=== PATIENT | female | born 1970 | race Asian ===

== ENCOUNTER 2019-02-21 13:42 | Emergency (ER) | payer OTHER ==
[2019-02-21 14:05] VITALS: BP 125/71
[2019-02-21] MEDS ORDERED: Fluorescein Sodium TOPICAL* 1 MG TEST STRIP OPHTHALMIC ONE (15:13)
[2019-02-21] MEDS ORDERED: Tetracaine 0.5% OPTH.SOL 4 ML* 1 DROP BTL BOTH EYES ONE (15:13)
--- NOTE | 2019-02-21 15:49 | UC ---
Eye Complaint HPI - HPI Summary HPI Summary: 48-year-old woman comes in with a chief complaint of bilateral eye redness irritation and drainage. The left is worse than the right. She has had some upper respiratory tract infection symptoms. Is also worried about HSV in her eye because she does have a perineal outbreak at this time. She reports her vision is blurred today. No fevers no chills. She has contacts but she does not have abdomen right now. She has been flushing her eyes intermittently with urine. But she has not used any urine for multiple days. - History of Current Complaint Chief Complaint: UCEye Stated Complaint: EYE ISSUE Time Seen by Provider: 02/21/19 14:12 Hx Last Menstrual Period: unknown, verry irregular Pain Intensity: 0 - Allergies/Home Medications Allergies/Adverse Reactions: Allergies Allergy/AdvReac Type Severity Reaction Status Date / Time No Known Allergies Allergy Verified 02/21/19 14:02 PMH/Surg Hx/FS Hx/Imm Hx Previously Healthy: Yes - Surgical History Surgical History: Yes Surgery Procedure, Year, and Place: lumpectomy breast - Family History Known Family History: Positive: Non-Contributory - Social History Alcohol Use: Rare Substance Use Type: None Smoking Status (MU): Never Smoked Tobacco Review of Systems All Other Systems Reviewed And Are Negative: Yes Constitutional: Positive: Negative Skin: Positive: Other - see hpi Eyes: Positive: Blurred Vision, Drainage, Eye Redness ENT: Positive: Nasal Discharge, Sinus Congestion Respiratory: Positive: Negative Cardiovascular: Positive: Negative Gastrointestinal: Positive: Negative Motor: Positive: Negative Neurovascular: Positive: Negative Musculoskeletal: Positive: Negative Neurological: Positive: Negative Psychological: Positive: Negative Is Patient Immunocompromised?: No Physical Exam Triage Information Reviewed: Yes Appearance: Well-Appearing, No Pain Distress, Well-Nourished Vital Signs: Initial Vital Signs Temp 99.0 F 02/21/19 13:56 Pulse 71 02/21/19 13:56 Resp 16 02/21/19 13:56 BP 125/71 02/21/19 13:56 Pulse Ox 96 02/21/19 13:56 Vital Signs Reviewed: Yes Eyes: Positive: Conjunctiva Inflamed - b/l, Discharge - b/l, Other: - fLUORESCEIN stain no uptake. PERRLA/EOMI. No hyphema. ENT: Positive: Pharynx normal, TMs normal Neck: Positive: Supple Respiratory: Positive: Lungs clear, Normal breath sounds, No respiratory distress Cardiovascular: Positive: RRR Musculoskeletal Exam: Normal Musculoskeletal: Positive: Strength Intact, ROM Intact Neurological Exam: Normal Neurological: Positive: Alert, Muscle Tone Normal Psychological Exam: Normal Psychological: Positive: Age Appropriate Behavior Skin Exam: Normal Eye Complaint Course/Dx - Course Course Of Treatment: There was no fluorescein stain uptake. We discussed herpes keratitis at this time did not find any evidence. We will treat for infectious conjunctivitis either viral or bacterial with tobramycin eyedrops. We discussed going to ophthalmology if she was not improving as expected. Patient questioned whether or not she would need any other kind of referral and I let her know if she is having a hard time getting into an carpet floor layer apprentice she is to call here and we should be able to facilitate getting her into see an carpet floor layer apprentice. - Differential Dx/Diagnosis Provider Diagnosis: Conjunctivitis Discharge - Sign-Out/Discharge Documenting (check all that apply): Patient Departure All imaging exams completed and their final reports reviewed: No Studies - Discharge Plan Condition: Stable Disposition: HOME Prescriptions: Tobramycin 0.3% OPHTH.KAYLEE* 1 drop BOTH EYES Q4H #1 btl Patient Education Materials: Conjunctivitis (ED) Referrals: Eli Jack MD [Primary Care Provider] - [facility] [Provider Group] - Billing Disposition and Condition Condition: STABLE Disposition: Home
== END 2019-02-21 16:09 | disposition home or self-care (01) ==
LOC: UCEAST 13:42
DX: H10.9 Unspecified conjunctivitis (principal)
CPT/HCPCS: 99212; A9270-GY; G0463

== ENCOUNTER 2019-02-22 14:06 | Emergency (ER) | payer OTHER ==
[2019-02-22] MEDS ORDERED: Tetracaine 0.5% OPTH.SOL 4 ML* 1 DROP BTL ONE (15:39)
[2019-02-22] MEDS ORDERED: Fluorescein Sodium TOPICAL* 1 MG TEST STRIP OPHTHALMIC ONE (15:39)
--- NOTE | 2019-02-22 16:16 | ED ---
Progress - Progress Note Progress Note: ASKED TO HELP EVALUATE PT AT REQUEST OF MARC BENAVIDES. Pt is a 48 y/o F presenting to the ED with some eye pain. She is pt of MARC Benavides, and states that she is worried that the pain and the findings on the patients original physical exam may be something worse, such as the Herpes virus. I spoke with her about the treatment plan and the plan to follow up, as well as informed her that we would be calling her with any abnormal results. MARC Blake has sent an eye culture of any drainage from the eye. Pt was [place] by [place]. Velazquez [place] [facility] and he started pt on Tobramycin eye drops which she was advised to take q 4 hrs, however she took the drops q 1 hour while awake. Prior to presentation [place] [facility] [place] had done a therapy where she put urine in both her eyes, and had also done another treatment where cream may have gotten in her eye. Pt has no rash, no hx of Herpes Simplex or Herpes Zoster, no prior hx of eye problems, does wear glasses for far vision. Pt has no c/o drainage or exudate from the eye, no fever. Has pain behind both of her eyes. No hx of trauma to the eye. She states that her eyesight drastically changed overnight, and that she can now see far without her glasses or contacts, but cannot see up close. Is not wearing her contacts now. MARC Blake stained pt's eyes prior to my evaluation, and the stain is still present in bilateral eyes. Pt's vision was normal in the ED by eye chart. Pt was advised to follow up with Dr. Bishop today, but states when she called there today, she was advised to come to the ED. Pt did not call [facility] again, as Dr. Velazquez had advised if she had a problem getting an appointment with Dr. Bishop. Her grandmother had DM, and her other grandmother had glaucoma. Home Medications Medication Instructions Recorded Confirmed Type Tobramycin 0.3% OPHTH.KAYLEE* 1 drop BOTH EYES Q4H #1 btl 02/21/19 02/22/19 Rx Appearance: Well-appearing, no pain distress, well-nourished Skin: Warm, color reflects adequate perfusion, dry Head: Normal Head/Face inspection, atraumatic Eyes: Conjunctivae clear, no exudate, PERRL, EOMI, no nystagmus, fluorescein stain shows minimal abrasions bilaterally in the outer lower quadrants , left slight worse than right. No slit lamp or tonopen available in the ED. ENT: Normal inspection Neck: Supple, no nodes, no JVD Respiratory: no respiratory distress Cardio: RRR, pulses normal, brisk capillary refill Musculoskeletal: Strength Intact/ROM intact Psychological: anxious Neuro: Alert, muscle tone normal, no focal deficit Course/Dx - Course Course Of Treatment: Pt is a 48 y/o F presenting to the ED with some eye pain. She is [facility] patient, and states that she is worried that the pain and the findings on the patients original physical exam may be something worse, such as the Herpes virus. I spoke with her about the treatment plan and the plan to follow up, as well as informed her that we would be calling her with any abnormal result of her eye culture. She states that her eyesight drastically changed overnight, and that she can now see without her glasses or contacts, but cannot see up close. Her grandmother had DM, and her other grandmother had glaucoma. Pt's VA is normal in the ED. Eye exam with fluorescein shows minimal bilateral corneal abrasions, conjuctivae clear, no exudate. Pt is advised to continue the Tobramycin as directed. Dr. Bishop's office will see pt in the am. - Diagnoses Provider Diagnoses: Bilateral corneal abrasions Discharge - Sign-Out/Discharge Documenting (check all that apply): Patient Departure - home Patient Received Moderate/Deep Sedation with Procedure: No - Discharge Plan Condition: Stable Disposition: HOME Patient Education Materials: Corneal Abrasion (ED) Referrals: Eli Jack MD [Primary Care Provider] - Stew Bishop MD [Medical Doctor] - [facility] [Outside] Additional Instructions: follow up with shelbi at 8am tomorrow Take tobramycin every 4 hours Return to ED if develop any new or worsening symptoms - Billing Disposition and Condition Condition: STABLE Disposition: Home - Attestation Statements Document Initiated by Scribe: Yes Documenting Scribe: Amanda Avendaño Provider For Whom Scribe is Documenting (Include Credential): Dr. Lydia Myers MD. Scribe Attestation: Amanda Ricksor, scribed for Dr. Lydia Myers MD. on 02/23/19 at 2210. Scribe Documentation Reviewed: Yes Provider Attestation: The documentation as recorded by the scribe, Amanda Avendaño accurately reflects the service I personally performed and the decisions made by me, Dr. Lydia Myers MD. Status of Scribe Document: Viewed
--- NOTE | 2019-02-22 16:16 | ED ---
Throat Pain/Nasal Congestion - HPI Summary HPI Summary: 48-year-old female presents with bilateral eye pain for the past couple days. States that she did urine therapy a couple days ago where placed urine in eyes. She said her eyes are irritated. States she did have a headache and some pressure behind eyes yesterday that has resolved. She has been taking tobramycin every hour for the past day. She states that she used to not be able to see far away but now can see faraway without glasses and now she can't see close. She denies any loss of vision. States this is blurry vision only. No sinus pressure or congestion. No dental pain. Patient is also concerned about history of herpes that has potential herpes in the eye. - History of Current Complaint Chief Complaint: EDEyeProblem Time Seen by Provider: 02/22/19 15:31 - Allergies/Home Medications Allergies/Adverse Reactions: Allergies Allergy/AdvReac Type Severity Reaction Status Date / Time nut - unspecified Allergy Vomiting Verified 02/22/19 14:26 raw fruits Allergy Vomiting Uncoded 02/22/19 14:26 PMH/Surg Hx/FS Hx/Imm Hx Endocrine/Hematology History: Reports: Hx Thyroid Disease - Surgical History Surgery Procedure, Year, and Place: lumpectomy breast Infectious Disease History: No Infectious Disease History: Reports: History Other Infectious Disease - herpes Denies: Traveled Outside the [place] in Last 30 Days - Family History Known Family History: Positive: Non-Contributory - Social History Alcohol Use: Rare Substance Use Type: Reports: None Smoking Status (MU): Never Smoked Tobacco Review of Systems Negative: Fever Positive: Blurred Vision, Erythema Negative: Chest Pain Negative: Shortness Of Breath All Other Systems Reviewed And Are Negative: Yes Physical Exam Triage Information Reviewed: Yes Vital Signs On Initial Exam: Initial Vitals Temp Pulse Resp BP Pulse Ox 98.1 F 69 16 137/91 98 02/22/19 14:21 02/22/19 14:21 02/22/19 14:21 02/22/19 14:21 02/22/19 14:21 Vital Signs Reviewed: Yes Appearance: Positive: Well-Appearing Skin: Positive: Warm, Dry Eyes: Positive: EOMI, SOLO, Conjunctiva Inflammed - mild, Other: - superficial scratches seen on bilteral corneas on fluorscein exam. Negative: Discharge ENT: Positive: Pharynx normal, TMs normal Respiratory/Lung Sounds: Positive: Clear to Auscultation, Breath Sounds Present Cardiovascular: Positive: Normal, RRR Musculoskeletal: Positive: Normal Neurological: Positive: Normal Psychiatric: Positive: Normal Procedures - Eye Procedure Left Alcaine Drops Administered: Yes - scratches on bilateral eyes Diagnostics - Vital Signs Vital Signs Temp Pulse Resp BP Pulse Ox 02/22/19 14:21 98.1 F 69 16 137/91 98 - Laboratory Lab Statement: Any lab studies that have been ordered have been reviewed, and results considered in the medical decision making process. EENT Course/Dx - Course Course Of Treatment: 48-year-old female presents with bilateral eye pain for the past couple days. States that she did urine therapy a couple days ago where placed urine in eyes. She said her eyes are irritated. States she did have a headache and some pressure behind eyes yesterday that has resolved. She has been taking tobramycin every hour for the past day. She states that she used to not be able to see far away but now can see faraway without glasses and now she can't see close. She denies any loss of vision. States this is blurry vision only. No sinus pressure or congestion. No dental pain. Patient is also concerned about history of herpes that has potential herpes in the eye. On exam conjunctiva is mildly injected. No edema around the eyes noted. On fluorescein exam mild uptake with scratches on bilateral eyes. No dendritic lesions noted. Discussed case with Dr. Elliott. We'll continue tobramycin. Told to follow up with optho as has appointment for tomorrow. eye culture also sent. Patient understands agrees with plan. PT SEEN AND EXAMINED BY DR. BOYLE. DIAGNOSIS AND DISCHARGE PLAN MADE IN CONJUNCTION WITH DR. BOYLE. SEE ADDITIONAL PROGRESS NOTE BY DR. BOYLE. - Differential Diagnoses Differential Diagnoses: Corneal Abrasion, Glaucoma, Sinusitis - Diagnoses Provider Diagnoses: Bilateral corneal abrasions - Provider Notifications Discussed Care Of Patient With: Lydia Boyle - SEE PROGRESS NOTE Instructed by Provider To: Other - PT SEEN FACE TO FACE, HISTORY AND EXAM CONDUCTED IN PERSON BY DR. BOYLE. DIAGNOSIS AND DISCHARGE PLAN MADE IN CONJUNCTION WITH DR. BOYLE. APPOINTMENT MADE FOR OPHTHALMOLOGY FOLLOW UP WITH DR CABELLO AT 8AM TOMORROW 02/23/19. Discharge - Sign-Out/Discharge Documenting (check all that apply): Patient Departure Patient Received Moderate/Deep Sedation with Procedure: No - Discharge Plan Condition: Stable Disposition: HOME Patient Education Materials: Corneal Abrasion (ED) [facility]errals: [facility] [Outside] Stew Cabello MD [Medical Doctor] - Eli Jack MD [Primary Care Provider] - Additional Instructions: follow up with shelbi at 8am tomorrow Take tobramycin every 4 hours Return to ED if develop any new or worsening symptoms - Billing Disposition and Condition Condition: STABLE Disposition: Home
[2019-02-22 16:35] VITALS: BP 139/77
== END 2019-02-22 16:35 | disposition home or self-care (01) ==
LOC: ED 14:06
DX: S05.02XA Injury of conjunctiva and corneal abrasion without foreign body, left eye, initial encounter (principal); S05.01XA Injury of conjunctiva and corneal abrasion without foreign body, right eye, initial encounter; X58.XXXA Exposure to other specified factors, initial encounter; Y92.9 Unspecified place or not applicable
CPT/HCPCS: 87070; 87205; 99282; A9270-GY